=== PATIENT | female | born 1955 | race Caucasian/White ===

== ENCOUNTER 2016-09-15 07:10 | Day surgery (SDC) | payer OTHER ==
[~2016-09-15] VITALS: Ht 172.7 cm; Wt 85.3 kg
[~2016-09-15 07:10] MED LIST: 0.9% Sodium Chloride 1,000 ML IV PRN; ASCO100089 PO; CHOL500011 PO; CITA20TA11 PO; FLUN25SP NS; LANS30CA PO; LEVO175T2 PO; Sodium Chloride LOK Flush 10 mL Syringe IV PRN; [UNRECOGNIZED DRUG - CODE] PO; fentaNYL-PF 50 mCg/mL 2 mL Inj IVPUSH PRN
[2016-09-15 07:20] VITALS: BP 124/77; PULSE 66; RESP 14; O2SAT 100
[2016-09-15] MEDS ORDERED: LANS30CA14 PO (07:23)
[2016-09-15] MEDS ORDERED: CYCL10TA9 PO (07:23)
[2016-09-15] MEDS ORDERED: ALPR0.5T8 PO (07:23)
[2016-09-15 08:30] VITALS: BP 105/63; PULSE 69; RESP 16; O2SAT 93
[2016-09-15 08:40] VITALS: BP 103/59; PULSE 67; RESP 16; O2SAT 98
[2016-09-15 08:50] VITALS: BP 93/61; PULSE 65; RESP 16; O2SAT 96
--- NOTE | 2016-09-15 09:06 | ENDO ---
[address] [address] ENDOSCOPY PROCEDURE PATIENT: JORDAN VALENCIA : 1955 MR#: [id number] ADMIT: 09/15/2016 JOB ID: [id number] PROCEDURE: Esophagogastroduodenoscopy with biopsy. INDICATIONS: A 61-year-old female with bloating of uncertain etiology. She did not tolerate the ground flaxseed fiber. Has not tried the recommended sauerkraut. She remains on Metamucil. She is on anti-reflux therapy with Prevacid. Downs's screening is pursued. EQUIPMENT: GIF-H190. SEDATION: 5 mg Versed, 100 mcg fentanyl. Lidocaine swish and swallow. COMPLICATIONS: None identified. PROCEDURE INFORMATION: After the risks and benefits were explained, written and verbal informed consent was obtained. The patient was brought into the endoscopy suite and placed into the left lateral decubitus position. Sedation was achieved using the above-stated medications with the addition of oxygen via nasal cannula. The scope was introduced into the mouth through the bite block, and advanced under direct visualization to the level of the second portion of the duodenum. The scope was slowly withdrawn to carefully examine the mucosa for any defects or lesions. Retroflexed views were accomplished in the stomach. The stomach was decompressed, the scope removed from the patient who tolerated the procedure well. FINDINGS: 1. Esophagus: The squamocolumnar junction generally correlated with the top of the gastric folds. GE junction was at 39 cm from the incisors. I did not see any acute erosive changes. No strictures. No mass lesions and no real suggestion of Downs's. The patient had a patent patulous LES and a subtle sliding hiatal hernia. 2. Stomach: The patient had a moderate diffuse gastropathy seen throughout and random biopsy was taken for exclusion of Helicobacter or other pathology. Retroflexed views of the LES disclosed a sliding hiatal hernia. No outlet obstruction. No ulcers. No mass lesions. 3. Duodenum: The patient had a very subtle nodule and I could not determine whether this was mucosal or submucosal, right on the corner between D1 and D2. Based on the angle here, I simply could not get the scope to cooperate and move the forceps into a position to take a bite from this location. ENDOSCOPIC DIAGNOSES: 1. Hiatal hernia. 2. Gastropathy. 3. Mild duodenopathy with small, possibly submucosal versus mucosal lesion between D1 and D2. RECOMMENDATIONS: 1. Await histopathology. 2. Continue Prevacid. 3. Continue bowel regimen. The patient is encouraged to consider swapping over to Citrucel in place of the Metamucil, considering her bloating. 4. CT of abdomen and pelvis with IV contrast to further evaluate the findings in the duodenum and her chronic bloating. 5. Follow up my office in about a week or so following CT scan.
--- NOTE | 2016-09-16 10:15 | PATH ---
SURGICAL PATHOLOGY Attending Physician:Sheryl Auguste CASE STATUS: Signed Out PATIENT NAME: JORDAN VALENCIA PID: [id number] : 1955 DATE COLLECTED:09/15/2016 17:26 SPECIMEN: Gastric, Biopsy CLINICAL HISTORY: 1). RANDOM GASTRIC BIOPSY FINAL DIAGNOSIS: 1.RANDOM GASTRIC BIOPSY: MILD CHRONIC GASTRITIS INVOLVING FRAGMENT OF FUNDIC MUCOSA. Negative for evidence of Helicobacter. Negative for intestinal metaplasia. Negative for dysplasia and malignancy. ICD10 code K29.70 GROSS DESCRIPTION: The specimen is received in one formalin filled container labeled with the patient's name, sublabeled "gastric" and consists of a 0.3 x 0.3 x 0.2 CM portion of tissue which is entirely submitted in one cassette. 09/15/2016 [facility] MICRO DESCRIPTION: See diagnosis. ICD-9 CODES: CPT CODES: 1: 99835 Electronically Signed Out Baljinder Sheppard MD [facility] Pathology [facility] [address] [place], [place] [address] Technical component performed at [facility], [facility] [address], [address]
== END 2016-09-15 23:59 | disposition home or self-care (01) ==
LOC: END 07:10
PROVIDERS: ATTEND Internal Medicine Gastroenterology
DX: K29.50 Unspecified chronic gastritis without bleeding (principal); K21.9 Gastro-esophageal reflux disease without esophagitis; K44.9 Diaphragmatic hernia without obstruction or gangrene; K63.89 Other specified diseases of intestine; J44.9 Chronic obstructive pulmonary disease, unspecified
CPT/HCPCS: 43239; G0500; J7030